=== PATIENT | male | born 1965 | race Caucasian/White ===

== ENCOUNTER 2016-09-02 16:35 | Emergency (ER) | payer OTHER ==
[~2016-09-02 16:35] MED LIST: NOMED
[2016-09-02 17:00] VITALS: BP 128/84; PULSE 83; RESP 20; O2SAT 99
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
[2016-09-02 18:48] VITALS: BP 121/77; PULSE 86; RESP 16; O2SAT 98
[2016-09-02 18:53] VITALS: BP 121/77; PULSE 86; RESP 16; O2SAT 98
== END 2016-09-02 18:55 | disposition home or self-care (01) ==
LOC: SED 16:35
DX: S39.012A Strain of muscle, fascia and tendon of lower back, initial encounter (principal); X58.XXXA Exposure to other specified factors, initial encounter; Y93.89 Activity, other specified; Y92.89 Other specified places as the place of occurrence of the external cause; Y99.8 Other external cause status; F17.200 Nicotine dependence, unspecified, uncomplicated; Z88.2 Allergy status to sulfonamides
CPT/HCPCS: 96372; 99284; J1885

== ENCOUNTER 2017-01-09 12:00 | Emergency (ER) | payer OTHER ==
[~2017-01-09] VITALS: Ht 190.5 cm; Wt 84.1 kg
[2017-01-09 12:06] VITALS: BP 156/97; PULSE 103; RESP 16; O2SAT 98
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
[2017-01-09 13:08] VITALS: BP 161/95; PULSE 73; RESP 14; O2SAT 99
== END 2017-01-09 13:06 | disposition home or self-care (01) ==
LOC: SED 12:00
DX: S61.412A Laceration without foreign body of left hand, initial encounter (principal); W26.0XXA Contact with knife, initial encounter; Y93.89 Activity, other specified; Y92.091 Bathroom in other non-institutional residence as the place of occurrence of the external cause; Y99.8 Other external cause status; F17.200 Nicotine dependence, unspecified, uncomplicated; Z88.2 Allergy status to sulfonamides